=== PATIENT | male | born 1975 | race Caucasian/White ===

== ENCOUNTER 2016-04-15 12:59 | Emergency (ER) | payer OTHER ==
[~2016-04-15] VITALS: Wt 72.5 kg
[~2016-04-15 12:59] MED LIST: DOCU-144 PO; HYDR-3498 PO; LEVO500T72 PO; METR500T PO
[2016-04-15] MEDS ORDERED: ONDANSETRON 4 MG INJ IV STA (14:51)
[2016-04-15 15:30] LABS: ALBUMIN 4.6 g/dl (3.3-4.9)
[2016-04-15 15:30] LABS: ADD UMIC YES; URINE BILIRUBIN (Dip) NEGATIVE (NEGATIVE); URINE BLOOD (Dip) NEGATIVE (NEGATIVE); URINE COLOR YELLOW (YELLOW); URINE GLUCOSE (Dip) NEGATIVE (NEGATIVE); URINE KETONES (Dip) NEGATIVE (NEGATIVE); URINE LEUKOCYTE ESTERASE (Dip) NEGATIVE (NEGATIVE); URINE NITRITE (Dip) NEGATIVE (NEGATIVE); URINE TOTAL PROTEIN (Dip) TRACE (NEGATIVE); URINE UROBILINOGEN (Dip) 1.0 E.U./dL (0.1-1.0)
[2016-04-15 15:33] LABS: ALBUMIN/GLOBULIN RATIO 1.39; BASOPHIL # 0.1 10^3/ul (0.0-0.1); BASOPHILS % 0.6 % (0.0-2.0); BILIRUBIN,INDIRECT 0.4 mg/dl (0-1.1); BILIRUBIN,TOTAL 0.4 mg/dl (0.2-1.3); CALCIUM 9.9 mg/dl (8.4-10.2); EOSINOPHILS # 0.1 10^3/ul (0.0-0.5); EOSINOPHILS % 0.7 % (0.0-7.0); HEMATOCRIT 47.7 % (42.0-52.0); HEMOGLOBIN 16.2 g/dl (14.0-18.0); LYMPHOCYTES # 2.9 10^3/ul (0.8-2.9); LYMPHOCYTES % 23.4 % (15.0-51.0); MEAN CORPUSCULAR HEMOGLOBIN 30.6 pg (29.0-33.0); MEAN PLATELET VOLUME 8.7 fl (7.4-10.4); MONOCYTE # 1.2 10^3/ul (0.3-0.9); MONOCYTES % 9.6 % (0.0-11.0); NEUTROPHIL # 8.1 10^3/ul (1.6-7.5); NEUTROPHILS % 65.7 % (39.0-77.0); PLATELET COUNT 326 10^3/UL (140-440); RED CELL DISTRIBUTION WIDTH 13.2 % (11.5-14.5); TOTAL PROTEIN 7.9 g/dl (6.1-8.1); UNCORRECTED WBC 12.3 10^3/ul (4.8-10.8); WHITE BLOOD COUNT 12.3 10^3/ul (4.8-10.8)
[2016-04-15 15:42] LABS: CONDITION 1
[2016-04-15 15:49] LABS: BACTERIA,URINE FEW; MUCUS,URINE MODERATE; URINE RBCS NONE SEEN /HPF (0)
--- NOTE | 2016-04-15 15:50 | RADRPT ---
PROCEDURE: CT Abdomen and Pelvis without contrast. CLINICAL INDICATION: Flank pain. History of surgery for diverticulosis. TECHNIQUE: CT scan of the abdomen and pelvis without contrast was performed on a multidetector hig h-resolution CT scanner. The patient was scanned without intravenous contrast. Coronal and sagittal reformatted images were obtained from the axial source images. Images were reviewed on a high-resol [employer] PACS workstation. The total exam CTDI equals 15.20 mGy and the total exam DLP equals 818.41 mG y-cm. One or more of the following dose reduction techniques were used: Automated exposure control. Adjustment of the mA and/or kV according to patient size. Use of iterative reconstruction technique. COMPARISON: CT abdomen and pelvis 07/05/2015. FINDINGS: CT abdomen: The lung bases are clear. The heart size is normal, without pericardial thickening or effusion. Th e liver is normal in size and density without focal mass or intrahepatic biliary dilatation. The sp felipa is normal in size and homogeneous in density. The stomach is partially collapsed, but is gross ly unremarkable. The pancreas as visualized is normal. The gallbladder and biliary tree are unrema rkable and there is no evidence for biliary dilatation. The adrenal glands are symmetric and normal . The kidneys are symmetrically unremarkable as well. There is a punctate 3 mm nonobstructing stone in the mid pole left kidney. There is no hydronephrosis. The aorta is of normal caliber. There is no retroperitoneal lymphadenopathy. The cliff hepatis siri on is clear. The bowel and mesentery, as visualized, are equally unremarkable. There is mild divert iculosis of the descending colon without evidence of acute diverticulitis. CT pelvis: The small bowel loops situated within the pelvis are unremarkable. There is a normal appendix. The pelvic organs are normal. The pelvic sidewalls and inguinal regions are clear. The sigmoid colon a nd rectum are unremarkable. No mass, lymphadenopathy, or free fluid is seen. No acute inflammation is seen. No osteolytic or osteoblastic lesion is detected. IMPRESSION: 1. No mass, lymphadenopathy, or focal acute inflammatory process is identified. 2. Mild diverticulosis of the descending colon without evidence of acute diverticulitis. 3. Punctate 3 mm nonobstructing stone in the left kidney. 4. Normal appendix. RPTAT: BB .Nikko Esparza MD, MD Date Time Electronically viewed and signed by .Nikko Esparza MD, MD on 04/15/2016 15:50 .O/
[2016-04-15] MEDS ORDERED: ONDANSETRON (ODT) 4 MG TAB ODT STA (16:12)
[2016-04-15] MEDS ORDERED: IBUP-1542 PO (16:46)
[2016-04-15] MEDS ORDERED: ONDA4TAB8 PO (16:47)
--- NOTE | 2016-04-15 16:55 | ERD ---
ER Documentation Chief Complaint Date/Time DATE: 04/15/16 TIME: 16:51 Chief Complaint gen abdominal soreness for the past few wks. nausea no vomiting or diarhea HPI This is a 40-year-old male that presents to the ER with generalized abdominal pain for the last few weeks. Patient states that he has nausea however denies vomiting or diarrhea. Patient has an extensive history of abdominal surgeries including diverticulitis and intra-abdominal abscess. Patient denies any fevers or chills. Pain is constant and described as a soreness. Pain is nonradiating. He has not taken anything for the pain. Patient denies any chest pain or shortness of breath. ROS 12 point review of systems was done, all negative except per HPI. Medications Home Meds Active Scripts Ondansetron Hcl* (Zofran*) 4 Mg Tablet, 4 MG PO Q6H for NAUSEA AND/OR VOMITING, #30 TAB Prov:AGNIESZKA CRAFT 04/15/16 Ibuprofen* (Motrin*) 600 Mg Tab, 600 MG PO Q6, #30 TAB Prov:AGNIESZKA CRAFT 04/15/16 Hydrocodone Bit/Acetaminophen (Anexsia 5-325 Mg Tablet) 1 Tab Tablet, 1 TAB PO Q4H Y for MILD PAIN LEVEL 1-3, #20 TAB Prov:VIMAL MATSON 07/08/15 Levofloxacin* (Levaquin*) 500 Mg Tablet, 500 MG PO DAILY for 10 Days, TAB Prov:VIMAL MATSON 07/08/15 Metronidazole* (Flagyl*) 500 Mg Tablet, 500 MG PO Q8 for 10 Days, TAB Prov:VIMAL MATSON 07/08/15 Docusate Sodium* (Colace*) 100 Mg Capsule, 100 MG PO TID for 30 Days, CAP hold if diarrhea Prov:VIMAL MATSON 07/08/15 Allergies Allergies: Coded Allergies: No Known Drug Allergy (Verified Allergy, Mild, 07/05/15) PMhx/Soc Medical and Surgical Hx: pt denies Medical Hx History of Surgery: Yes (PARTIAL COLON REMOVED AND L HERNIA REPAIR) Anesthesia Reaction: No Hx Neurological Disorder: No Hx Respiratory Disorders: No Hx Cardiac Disorders: No Hx Psychiatric Problems: No Hx Miscellaneous Medical Probl: No Hx Alcohol Use: Yes Hx Substance Use: No Hx Tobacco Use: Yes Smoking Status: Unknown if ever smoked Physical Exam Vitals Vital Signs Date Time Temp Pulse Resp B/P Pulse Ox O2 Delivery O2 Flow Rate FiO2 04/15/16 13:02 98.1 102 21 123/87 98 Physical Exam GENERAL: The patient is well developed and appropriate for usual state of health , in no apparent distress. HEENT: Atraumatic. CHEST: Clear to auscultation bilaterally. There are no rales, wheezes or rhonchi. HEART: Regular rate and rhythm. No murmurs, clicks, rubs or gallops. ABDOMEN: Soft, nontender and nondistended. Good bowel sounds. No rebound or guarding. No gross peritonitis. No gross organomegaly or masses. No Dias sign or McBurney point tenderness. BACK: No midline or flank tenderness. NEURO: Alert and oriented. SKIN: There is no apparent rash or petechia. The skin is warm and dry. Result Diagram: 04/15/16 1506 04/15/16 1506 Results 24 hrs Laboratory Tests Test 04/15/16 15:06 04/15/16 15:10 Alanine Aminotransferase (ALT/SGPT) 29IU/L Albumin 4.6g/dl Albumin/Globulin Ratio 1.39 Alkaline Phosphatase 103IU/L Anion Gap 18 Aspartate Amino Transf (AST/SGOT) 29IU/L Basophils # 0.110^3/ul Basophils % 0.6% Blood Urea Nitrogen 12mg/dl Calcium Level 9.9mg/dl Carbon Dioxide Level 30mmol/L Chloride Level 101mmol/L Creatinine 1.00mg/dl Direct Bilirubin 0.00mg/dl Eosinophils # 0.110^3/ul Eosinophils % 0.7% Globulin 3.30g/dl Glucose Level 83mg/dl Hematocrit 47.7% Hemoglobin 16.2g/dl Indirect Bilirubin 0.4mg/dl Lipase 336U/L Lymphocytes # 2.910^3/ul Lymphocytes % 23.4% Mean Corpuscular Hemoglobin 30.6pg Mean Corpuscular Hemoglobin Concent 34.0g/dl Mean Corpuscular Volume 90.0fl Mean Platelet Volume 8.7fl Monocytes # 1.210^3/ul Monocytes % 9.6% Neutrophils # 8.110^3/ul Neutrophils % 65.7% Nucleated Red Blood Cells # 0.010^3/ul Nucleated Red Blood Cells % 0.0/100WBC Platelet Count 77853^3/UL Potassium Level 4.0mmol/L Red Blood Count 5.3010^6/ul Red Cell Distribution Width 13.2% Sodium Level 145mmol/L Total Bilirubin 0.4mg/dl Total Protein 7.9g/dl White Blood Count 12.310^3/ul Urine Bacteria FEW Urine Bilirubin NEGATIVE Urine Clarity CLEAR Urine Color YELLOW Urine Epithelial Cells OCCASIONAL Urine Glucose NEGATIVE% Urine Hemoglobin NEGATIVE Urine Ketones NEGATIVE Urine Leukocyte Esterase NEGATIVE Urine Microscopic RBC NONE SEEN/HPF Urine Microscopic WBC NONE SEEN/HPF Urine Mucus MODERATE Urine Nitrite NEGATIVE Urine Specific [place] 1.020 Urine Total Protein TRACE Urine Urobilinogen 1.0 E.U./dL Urine pH 7.0 Current Medications Medications (Trade) Dose Ordered Sig/Mayela Route PRN Reason Start Time Stop Time Status Last Admin Dose Admin Ondansetron HCl (Zofran Inj) 4 mg ONCE STAT IV 04/15/16 14:51 04/15/16 14:53 DC Ondansetron HCl (Zofran Odt) 4 mg ONCE STAT ODT 04/15/16 16:12 04/15/16 16:13 DC 04/15/16 16:18 Procedures/MDM This is a 40-year-old male with generalized abdominal patient did have a kidney stone. Patient's abdominal exam is benign. I doubt acute abdomen at this time. He is afebrile and well-appearing. Patient has had symptoms for the past few weeks now. This is likely nonacute abdomen. Patient will be sent home with ibuprofen with Zofran. He needs to follow-up with his primary care doctor within 1-2 days or return to ER sooner if symptoms worsen. My medical decision made to initiate with the patient understands with plan. Departure Diagnosis: Primary Impression: Kidney stone Condition: Stable Patient Instructions: Preventing Kidney Stones Additional Instructions: Call your primary care doctor TOMORROW for an appointment during the next 1-2 days.See the doctor sooner or return here if your condition worsens before your appointment time. AGNIESZKA CRAFT Apr 15, 2016 16:55
== END 2016-04-15 17:02 | disposition home or self-care (01) ==
LOC: FTE 12:59
DX: N20.0 Calculus of kidney (principal); R11.0 Nausea; Z87.891 Personal history of nicotine dependence
CPT/HCPCS: 74176; 80053; 81001; 83690; 85025; Z7502; Z7610; 81003

== ENCOUNTER 2016-06-04 15:21 | Emergency (ER) | payer OTHER ==
[~2016-06-04] VITALS: Ht 160 cm; Wt 75.0 kg
[~2016-06-04 15:21] MED LIST changes: +IBUP-1542 PO; +ONDA4TAB8 PO
[2016-06-04 15:23] VITALS: Ht 160 cm; Wt 75.0 kg
[2016-06-04] MEDS ORDERED: IBUP-1542 PO (15:43)
--- NOTE | 2016-06-04 15:48 | ERD ---
ER Documentation Chief Complaint Date/Time DATE: 06/04/16 TIME: 15:43 Chief Complaint LEFT SHOULDER PAIN HPI Patient is a 40-year-old male with a past medical history of diverticulitis status post colon resection who presented to the emergency department with left sided chest pain. Patient states the pain started 1 week ago after "I had a panic attack." Patient describes the pain to be localized to his left upper chest. Patient denies any radiation of the pain. Pain is nonexertional. Patient denies any shortness of breath, pain radiating down his left arm, nausea , vomiting, abdominal pain, diaphoresis, or loss of consciousness. Patient denies any heavy lifting. Patient states he does have an increased recent stress. Patient denies any recent travel, recent surgeries, leg swelling. ROS All systems reviewed and are negative except as per history of present illness. Medications Home Meds Active Scripts Ibuprofen* (Motrin*) 600 Mg Tab, 600 MG PO Q6, #30 TAB Prov:TINO ALANIZ PA-C 06/04/16 Ondansetron Hcl* (Zofran*) 4 Mg Tablet, 4 MG PO Q6H for NAUSEA AND/OR VOMITING, #30 TAB Prov:AGNIESZKA CRAFT 04/15/16 Ibuprofen* (Motrin*) 600 Mg Tab, 600 MG PO Q6, #30 TAB Prov:AGNIESZKA CRAFT 04/15/16 Hydrocodone Bit/Acetaminophen (Anexsia 5-325 Mg Tablet) 1 Tab Tablet, 1 TAB PO Q4H Y for MILD PAIN LEVEL 1-3, #20 TAB Prov:VIMAL MATSON 07/08/15 Levofloxacin* (Levaquin*) 500 Mg Tablet, 500 MG PO DAILY for 10 Days, TAB Prov:VIMAL MATSON 07/08/15 Metronidazole* (Flagyl*) 500 Mg Tablet, 500 MG PO Q8 for 10 Days, TAB Prov:VIMAL MATSON 07/08/15 Docusate Sodium* (Colace*) 100 Mg Capsule, 100 MG PO TID for 30 Days, CAP hold if diarrhea Prov:VIMAL MATSON 07/08/15 Allergies Allergies: Coded Allergies: No Known Drug Allergy (Verified Allergy, Mild, 07/05/15) PMhx/Soc History of Surgery: Yes (PARTIAL COLON REMOVED AND L HERNIA REPAIR) Anesthesia Reaction: No Hx Neurological Disorder: No Hx Respiratory Disorders: No Hx Cardiac Disorders: No Hx Psychiatric Problems: No Hx Miscellaneous Medical Probl: No (diverticulosis) Hx Alcohol Use: Yes Hx Substance Use: Yes (marijuana) Hx Tobacco Use: Yes Smoking Status: Current every day smoker FmHx Family History: No coronary disease, No diabetes Physical Exam Vitals Vital Signs Date Time Temp Pulse Resp B/P Pulse Ox O2 Delivery O2 Flow Rate FiO2 06/04/16 17:20 98.0 88 18 135/80 98 06/04/16 15:23 98.2 99 20 178/78 99 Physical Exam GENERAL: Well-developed, well-nourished male. Appears in no acute distress. Speaking in full sentences. HEAD: Normocephalic, atraumatic. EYES: Pupils are equally reactive bilaterally. EOMs grossly intact. No conjunctival erythema. ENT: Moist mucous membranes. No uvula deviation. No kissing tonsils. NECK: Supple. No meningismus. Normal range of motion of the neck. CHEST WALL: Tender to palpation of the left chest wall. Pain is reproducible. LUNG: Clear to auscultation bilaterally. No rhonchi, wheezing, rales or coarse breath sounds. HEART: Regular rate and rhythm. No murmurs, rubs or gallops. ABDOMEN: Linear incisional scar noted. Soft, nontender, and nondistended. Positive bowel sounds in all four quadrants. No rebound tenderness, no guarding. (-) McBurney's point tenderness. No CVA tenderness. EXTREMITIES: Equal pulses bilaterally. No peripheral clubbing, cyanosis or edema. No unilateral leg swelling. NEUROLOGIC: Alert and oriented. Moving all four extremities without any difficulty. Normal speech. Steady gait. SKIN: Normal color. Warm and dry. No rashes or lesions. Procedures/MDM ED COURSE: The patient was stable throughout ED course. I kept the patient and/or family informed of laboratory and diagnostic imaging results throughout the ED course. EKG: Read by Dr. Patrick, attending physician. EKG shows normal sinus rhythm at a rate of 94 bpm. No arrhythmias, acute ST elevations or T wave changes were noted. DIAGNOSTIC IMAGING: Read by radiologist. DIAGNOSTIC IMAGING REPORT Patient: KASI JACKSON : 1975 Age: 40 Sex: M MR #: [id number] DOS: 06/04/16 1540 Ordering MD: TINO ALANIZ PA-C Location: [facility] Room/Bed: PROCEDURE: XR Chest. CLINICAL INDICATION: chest pain TECHNIQUE: Single frontal view of the chest was obtained COMPARISON: None FINDINGS: The heart and mediastinum are within normal limits. The lungs are clear. There is no pleural effusion or pneumothorax. RPTAT: AA IMPRESSION: No acute disease. .Brendon Granger MD, Date Time Electronically viewed and signed by .Brendon Granger MD, MD on 06/04/2016 17: 01 .S/ CC: TINO ALANIZ PA-C MEDICAL DECISION MAKING: This is a 40-year-old male who presents to the emergency department with episodic left-sided chest pain 1 week. Patient denied any leg swelling, recent surgeries, travel, exogenous estrogen use. Vital signs were reviewed. Patient was afebrile. Patient was not hypoxic. Cardiac exam was normal. Lung exam was normal. Left chest pain was reproduced with palpation. EKG was within normal limits. Low suspicion for acute coronary syndrome, arrhythmia or pericarditis. CXR was within normal limits. Low suspicion for pneumothorax, pneumonia or pleural effusion. Low suspicion for PE. Given these findings, the patient's presentation is most consistent with chest wall pain. PRESCRIPTIONS: Ibuprofen DISCHARGE: At this time, patient is stable for discharge and outpatient management. Patient provided with a copy of all imaging studies obtained today. I have instructed the patient to follow-up with his/her primary care physician in 1-2 days. If symptoms persist, patient may need to see a statistical consultant for further examinations and testing including stress test or 24 hour holtor monitoring. I have instructed the patient to promptly return to the ER at any time for any new or worsening symptoms including increased increased pain, fever, nausea, vomiting, numbness, weakness, diaphoresis or LOC. The patient and/or family expressed understanding of and agreement with this plan. All questions were answered. Home care instructions were provided. Patient's blood pressure was elevated (>120/80) but appears stable without evidence of hypertensive emergency, hypertensive urgency or end-organ failure. I had discussion with the patient about the risks of hypertension. I have advised the patient to follow up with his/her primary care physician for outpatient monitoring and treatment for hypertension in 2-3 days. I have instructed the patient to return to the ER for any new or worsening symptoms including chest pain, shortness of breath, headache, blurred vision, confusion, nausea, vomiting or LOC. Departure Diagnosis: Primary Impression: Left sided chest pain Condition: Stable Patient Instructions: Chest Pain, Uncertain Cause Referrals: COMMUNITY CLINICS YOU HAVE RECEIVED A MEDICAL SCREENING EXAM AND THE RESULTS INDICATE THAT YOU DO NOT HAVE A CONDITION THAT REQUIRES URGENT TREATMENT IN THE EMERGENCY DEPARTMENT. FURTHER EVALUATION AND TREATMENT OF YOUR CONDITION CAN WAIT UNTIL YOU ARE SEEN IN YOUR DOCTORS OFFICE WITHIN THE NEXT 1-2 DAYS. IT IS YOUR RESPONSIBILITY TO MAKE AN APPOINTMENT FOR FOLOW-UP CARE. IF YOU HAVE A PRIMARY DOCTOR --you should call your primary doctor and schedule an appointment IF YOU DO NOT HAVE A PRIMARY DOCTOR YOU CAN CALL OUR PHYSICIAN REFERRAL HOTLINE AT IF YOU CAN NOT AFFORD TO SEE A PHYSICIAN YOU CAN CHOSE FROM THE FOLLOWING [facility] [address] [facility]. [facility] [address] [facility]. [facility] [address] [facility] [facility] [address] [address] [facility]. [facility]. [address] [facility]. [facility] YOU HAVE RECEIVED A MEDICAL SCREENING EXAM AND THE RESULTS INDICATE THAT YOU DO NOT HAVE A CONDITION THAT REQUIRES URGENT TREATMENT IN THE EMERGENCY DEPARTMENT. FURTHER EVALUATION AND TREATMENT OF YOUR CONDITION CAN WAIT UNTIL YOU ARE SEEN IN YOUR DOCTORS OFFICE WITHIN THE NEXT 1-2 DAYS. IT IS YOUR RESPONSIBILITY TO MAKE AN APPOINTMENT FOR FOLOW-UP CARE. IF YOU HAVE A PRIMARY DOCTOR --you should call your primary doctor and schedule and appointment IF YOU DO NOT HAVE A PRIMARY DOCTOR YOU CAN CALL OUR PHYSICIAN REFERRAL HOTLINE AT . IF YOU CAN NOT AFFORD TO SEE A PHYSICIAN YOU CAN CHOSE FROM THE FOLLOWING [facility] INSTITUTIONS: [facility] [address] [place] [address] [facility] [address] [place] [address] [facility] [address] [place] [address] Additional Instructions: Call your primary care doctor TOMORROW for an appointment during the next 1-2 days.See the doctor sooner or return here if your condition worsens before your appointment time. Tender in the emergency department immediately for any worsening chest pain, shortness of breath, nausea, vomiting, excessive sweating, loss of consciousness. Patient was advised to follow-up with his primary care physician for referral to see a statistical consultant. Patient will likely benefit from a stress test and for 24 hour Holter monitoring. TINO ALANIZ PA-C Jun 04, 2016 15:48
--- NOTE | 2016-06-04 17:01 | RADRPT ---
PROCEDURE: XR Chest. CLINICAL INDICATION: chest pain TECHNIQUE: Single frontal view of the chest was obtained COMPARISON: None FINDINGS: The heart and mediastinum are within normal limits. The lungs are clear. There is no pleural effusion or pneumothorax. RPTAT: AA IMPRESSION: No acute disease. .Brendon Granger MD, Date Time Electronically viewed and signed by .Brendon Granger MD, on 06/04/2016 17:01 .S/
[2016-06-04 17:20] VITALS: BP 135/80; PULSE 88; RESP 18; TEMP 98
== END 2016-06-04 17:20 | disposition home or self-care (01) ==
LOC: FTE 15:21
DX: R07.9 Chest pain, unspecified (principal); F17.210 Nicotine dependence, cigarettes, uncomplicated
CPT/HCPCS: 71010; 93005

== ENCOUNTER 2016-09-16 21:22 | Emergency (ER) | payer OTHER ==
[~2016-09-16] VITALS: Ht 172.7 cm; Wt 73.0 kg
[2016-09-16 21:34] VITALS: Ht 172.7 cm; Wt 73.0 kg
[2016-09-16] MEDS ORDERED: LIDOCAINE 2%/EPI MPF (SDV) 20 ML VIAL INJ ONE (22:30)
--- NOTE | 2016-09-17 00:05 | RADRPT ---
PROCEDURE: X-ray right forearm CLINICAL INDICATION: Laceration to the ventral aspect of the right forearm with concern for retain ed radiopaque foreign body. TECHNIQUE: AP and lateral views of the right forearm. COMPARISON: None. FINDINGS: No evident retained radiopaque foreign material in the soft tissues of the right forearm. No acute fracture or dislocation. IMPRESSION: No evident retained radiopaque foreign material in the soft tissues of the right forearm. RPTAT: [facility] Physician Sarah Date Time Electronically viewed and signed by Physician Sarah on 09/17/2016 00:04 RS/
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
== END 2016-09-17 00:22 | disposition home or self-care (01) ==
LOC: FTE 21:22
DX: S51.811A Laceration without foreign body of right forearm, initial encounter (principal); F17.210 Nicotine dependence, cigarettes, uncomplicated; W25.XXXA Contact with sharp glass, initial encounter; Y92.9 Unspecified place or not applicable
CPT/HCPCS: 12002; 73090; Z7502; Z7610

== ENCOUNTER 2017-02-19 17:46 | Emergency (ER) | END 2017-02-19 23:53 | disposition left against medical advice (07) ==